=== PATIENT | female | born 1950 ===

== ENCOUNTER 2021-08-30 09:00 | Outpatient (RCR) | payer MEDICARE, BC, SELFPAY | END 2021-08-30 15:30 | disposition home or self-care (01) | LOC: HO.PT 09:00 | PROVIDERS: PCP Internal Medicine; Visit Provider Internal Medicine | DX: R39.81 Functional urinary incontinence (principal) | CPT/HCPCS: 97110; 97112; 97162; 97530 ==

== ENCOUNTER 2023-07-03 08:00 | Outpatient (RCR) | payer MEDICARE, BC, SELFPAY | END 2024-01-19 14:11 | disposition home or self-care (01) | LOC: HO.PTCHIC 08:00 | PROVIDERS: PCP Internal Medicine; Visit Provider Nurse Practitioner Family | DX: M79.604 Pain in right leg (principal) | CPT/HCPCS: 97110; 97161 ==

== ENCOUNTER 2024-02-02 13:00 | Outpatient (RCR) | payer MEDICARE, SELFPAY | END 2024-02-02 13:50 | disposition home or self-care (01) | LOC: HO.PT 13:00 | PROVIDERS: PCP Internal Medicine; Visit Provider Internal Medicine | DX: R39.81 Functional urinary incontinence (principal) | CPT/HCPCS: 97110; 97112; 97161; 97530 ==